=== PATIENT | male | born 1945 | race Caucasian/White ===

== ENCOUNTER 2021-10-16 15:06 | Inpatient (IN) ==
[2021-10-16] MEDS ORDERED: Melatonin 3 MG TABLET PO PRN (17:17)
[2021-10-16] MEDS ORDERED: Naloxone 0.4 MG/ML INJ IVP PRN (17:17)
[2021-10-16] MEDS ORDERED: MOM Conc 10 ML UD.LIQ PO PRN (17:17)
[2021-10-16] MEDS ORDERED: Perflutren Lipid Microsphere 1.3 ML in 0.9 % Sodium Chloride 8.7 ML IVP PRN (17:21)
[2021-10-16] MEDS ORDERED: *HR* Heparin 5,000 UNIT/ML VIAL IVP PRN (17:23)
[2021-10-16] MEDS ORDERED: *HR* Heparin 5,000 UNIT/ML VIAL IVP ONE (17:23)
[2021-10-16] MEDS ORDERED: *HR* LORazepam 2 MG/ML VIAL IVP PRN ×3 (17:25)
[2021-10-16] MEDS ORDERED: 0.9 % Sodium Chloride 1,000 ML IVC SCH (17:30)
[2021-10-16] MEDS ORDERED: Furosemide 40 MG/4 ML VIAL IVP ONE (17:49)
[2021-10-16] MEDS ORDERED: Azithromycin 500 MG in 0.9 % Sodium Chloride 250 ML IVPB SCH (18:00)
[2021-10-16] MEDS: Heparin 25,000 UNIT/250 ML 25,000 UNIT/250 ML IV.SOLN IVC SCH (18:55)
[2021-10-16] MEDS: Nicotine 21 MG PATCH.TD24 TD SCH (20:26)
[2021-10-16 20:32] LABS: Mean Corpuscular HGB Conc 31.6 g/dL (31.6-35.5); Mean Corpuscular Hemoglobin 30.2 pg (28.0-33.3); Mean Corpuscular Volume 95.5 fL (83.0-100.0); Mean Platelet Volume 10.9 fL (9.4-12.4); Platelet Count 256 K/mcL (140-400); Red Blood Count 3.98 M/mcL (4.19-5.50); Red Cell Distribution Width 17.2 % (11.5-14.5); White Blood Count 11.4 K/mcL (4.3-11.1)
[2021-10-16 20:41] LABS: INR 1.4
[2021-10-16 20:48] LABS: Heparin anti-factor XA UFH 1.27 IU/mL (0.30-0.70)
[2021-10-16] MEDS: DilTIAZem 50 MG/50 ML IV.SOLN IVC SCH (21:02)
[2021-10-17 04:50] LABS: Hematocrit 38.1 % (37.5-50.1); Hemoglobin 11.6 g/dL (12.9-16.9); Mean Corpuscular HGB Conc 30.4 g/dL (31.6-35.5); Mean Corpuscular Hemoglobin 29.5 pg (28.0-33.3); Mean Corpuscular Volume 96.9 fL (83.0-100.0); Platelet Count 233 K/mcL (140-400); Red Blood Count 3.93 M/mcL (4.19-5.50); Red Cell Distribution Width 17.2 % (11.5-14.5)
[2021-10-17 05:06] LABS: Alanine Aminotransferase 13 Units/L (7-52); Albumin/Globulin Ratio 0.9 (1.1-2.2); Alkaline Phosphatase 113 Units/L (34-104); Aspartate Amino Transferase 18 Units/L (13-39); BUN/Creatinine Ratio 29 (6-26); Bilirubin,Total 0.8 mg/dL (0.3-1.0); Blood Urea Nitrogen 28 mg/dL (8-23); Calcium 8.6 mg/dL (8.6-10.3); Carbon Dioxide 25 mEq/L (23-29); Chloride 102 mEq/L (98-107); Chol/HDL Ratio 2.9 (0-4.9); Cholesterol 115 mg/dL (< 200); Globulin 3.3 g/dL (2.4-3.5); Glucose 130 mg/dL (70-105); HDL Cholesterol 40 mg/dL (40-59); LDL Cholesterol,Calculated 55 mg/dL (< 100); Osmolality,Calculated 289 (280-300); Sodium 136 mEq/L (136-145); Total Protein 6.3 g/dL (6.4-8.9); Triglycerides 99 mg/dL (< 150); eGFR For African Americans > 60 (> 60); eGFR For Non-African Americans > 60 (> 60)
[2021-10-17] MEDS: *HR* Heparin 5,000 UNIT/ML VIAL IVP PRN ×2 (05:56→21:13)
[2021-10-17] MEDS: Nicotine 21 MG PATCH.TD24 TD SCH (08:20)
[2021-10-17 08:56] LABS: Estimated Average Glucose 100 mg/dl; Hemoglobin A1C 5.1 %
[2021-10-17] MEDS ORDERED: Vitamin B Complex/Vit C/Vit E 1 EACH TABLET PO SCH (09:00)
[2021-10-17] MEDS ORDERED: cefTRIAXone 1,000 MG in 0.9 % Sodium Chloride Mini Bag 100 ML IVPB SCH (09:00)
[2021-10-17] MEDS ORDERED: Folic Acid 1 MG TABLET PO SCH (09:00)
[2021-10-17] MEDS: MethylPREDNISolone 40 MG/ML VIAL IVP SCH ×3 (10:31→23:35)
[2021-10-17] MEDS: Levalbuterol Neb 1.25 MG/3 ML IH SCH ×2 (11:43→22:49)
[2021-10-17] MEDS ORDERED: 0.9 % Sodium Chloride 250 ML ONE (16:40)
[2021-10-17] MEDS ORDERED: 0.9 % Sodium Chloride 500 ML IV ONE (16:43)
[2021-10-17] MEDS ORDERED: 0.9 % Sodium Chloride 500 ML ONE (16:45)
[2021-10-17] MEDS: Ondansetron ODT 4 MG TAB.RAPDIS SL PRN (16:48)
[2021-10-17 18:06] LABS: Hematocrit 38.6 % (37.5-50.1); Hemoglobin 11.8 g/dL (12.9-16.9)
[2021-10-17] MEDS: DilTIAZem 50 MG/50 ML IV.SOLN IVC SCH (19:02)
[2021-10-17] MEDS ORDERED: 0.9 % Sodium Chloride 250 ML IVC ONE (22:49)
[2021-10-17] MEDS: Heparin 25,000 UNIT/250 ML 25,000 UNIT/250 ML IV.SOLN IVC SCH (22:55)
[2021-10-17 23:15] VITALS: TEMP 97.6
[2021-10-18] MEDS ORDERED: *HR* Metoprolol 5 MG/5 ML VIAL IVP ONE (00:02)
[2021-10-18] MEDS: Ondansetron ODT 4 MG TAB.RAPDIS SL PRN (00:09)
[2021-10-18] MEDS ORDERED: 0.9 % Sodium Chloride 1,000 ML ONE (02:16)
[2021-10-18] MEDS ORDERED: 0.9 % Sodium Chloride 1,000 ML IVC ONE (02:17)
[2021-10-18] MEDS ORDERED: methylPREDNISolone 125 MG/2 ML VIAL ONE (02:21)
[2021-10-18] MEDS ORDERED: methylPREDNISolone 125 MG/2 ML VIAL IVP ONE (02:21)
[2021-10-18 02:54] LABS: ABG Base Excess -16 mEq/L (-2 to 3); ABG HCO3 13 mEq/L (21-27); ABG Oxygen Saturation 88 % (95-98); ABG PCO2 43 mmHg (35-45); ABG PO2 73 mmHg (85-104); ABG TCO2 14 mEq/L (20-26)
[2021-10-18] MEDS ORDERED: Amiodarone Premix 150 MG/100 ML BAG IVPB ONE (03:00)
[2021-10-18] MEDS: Ipratropium/Albuterol Neb 3 ML IH SCH ×3 (03:16→07:55)
[2021-10-18] MEDS ORDERED: *HR* Dextrose 50 % in Water (Syg) 50 ML SYRINGE ONE (03:26)
[2021-10-18] MEDS ORDERED: Amiodarone Premix 360 MG/200 ML BAG IVC ONE (03:30)
[2021-10-18] MEDS ORDERED: Norepinephrine 4 MG/254 ML IV.SOLN IVC SCH (04:30)
[2021-10-18] MEDS ORDERED: Sodium Bicarbonate 150 MEQ in D5% in Water 1,000 ML IVC SCH (04:30)
[2021-10-18] MEDS ORDERED: FentaNYL (PF) 1,000 MCG/100 ML IV.SOLN IVC SCH (04:45)
[2021-10-18] MEDS ORDERED: Artificial Tears SOLN 15 ML BOTTLE BOTH EYES PRN (04:45)
[2021-10-18 04:53] VITALS: PULSE 93
[2021-10-18] MEDS ORDERED: *HR* Midazolam HCl 2 MG/2 ML VIAL IVP ONE (05:32)
[2021-10-18] MEDS ORDERED: *HR* Etomidate 20 MG/10 ML AMPUL IVP ONE (05:32)
[2021-10-18 06:08] VITALS: BP 59/47; O2SAT 85
[2021-10-18] MEDS ORDERED: Artificial Tears SOLN 15 ML BOTTLE BOTH EYES SCH (08:00)
[2021-10-18] MEDS ORDERED: levoFLOXacin 750 MG/150 ML 750 MG/150 ML BAG IVPB SCH (09:00)
[2021-10-18] MEDS ORDERED: Chlorhexidine Rinse 15 ML MOUTHWASH MM SCH (09:00)
[2021-10-18] MEDS ORDERED: Pantoprazole 40 MG VIAL IVP SCH (09:00)
[2021-10-18] MEDS ORDERED: Amiodarone Premix 360 MG/200 ML BAG IVC SCH (09:30)
[2021-10-18] MEDS ORDERED: *HR* Atropine Sulfate 1 MG/10 ML SYRINGE IV ONE (10:32)
[2021-10-18] MEDS ORDERED: *HR* EPINEPHrine 1 MG/10 ML SYRINGE IVP ONE (10:32)
== END 2021-10-18 10:33 | disposition expired | DRG 134 ==
LOC: 2NENU → SUATTDRO 18:17 → ICNU 10-18 03:05
PROVIDERS: ADMIT Hospitalist; ATTEND Internal Medicine